=== PATIENT | male | born 1995 | race African-American/Black ===

== ENCOUNTER 2017-02-27 09:53 | Emergency (ER) | payer MEDICAID ==
[~2017-02-27] VITALS: Ht 180.3 cm; Wt 98.0 kg
[2017-02-27] MEDS ORDERED: PROSOL IH (10:04)
[2017-02-27] MEDS ORDERED: MAGNESIUM/ALUMINUM HYDROXIDE/SIMETHICONE 30ML UDC PO ONE (10:30)
[2017-02-27] MEDS ORDERED: ACETAMINOPHEN WITH CODEINE 300/30MG TABLET PO ONE (10:30)
[2017-02-27 10:39] LABS: BASOPHILS % 1.1 % (0.0-2.0); EOSINOPHILS % 1.6 % (0.0-5.0); HEMATOCRIT. 43.5 % (42.0-52.0); HEMOGLOBIN. 14.6 g/dL (14.0-18.0); LYMPHOCYTES % 21.3 % (20.0-50.0); MEAN CORPUSCULAR HEMOGLOBIN 25.7 pg (28.0-32.0); MEAN CORPUSCULAR VOLUME 76.5 fL (80.0-94.0); MEAN PLATELET VOLUME 9.1 fl (7.4-10.4); MONOCYTES % 11.8 % (2.0-8.0); NEUTROPHILS % 64.2 % (40.0-76.0); PLATELET 174 x1000/uL (130-400); RED BLOOD CELL COUNT 5.69 mill/uL (4.7-6.1); RED CELL DISTRIBUTION WIDTH 17.6 % (11.6-14.6)
[2017-02-27 10:44] LABS: INR 1.1
[2017-02-27 10:52] LABS: CARBON DIOXIDE 28 mEq/L (21-32); CHLORIDE 106 mEq/L (98-107)
[2017-02-27] MEDS ORDERED: KETOROLAC 60MG/2ML VIAL IM ONE (11:45)
[2017-02-27] MEDS ORDERED: KETOROLAC 30MG/ML VIAL IV ONE (12:00)
[2017-02-27 12:43] VITALS: BP 118/70
== END 2017-02-27 12:44 | disposition home or self-care (01) ==
LOC: ER 10:20
DX: R07.9 Chest pain, unspecified (principal); J45.909 Unspecified asthma, uncomplicated; F12.10 Cannabis abuse, uncomplicated
CPT/HCPCS: 36415; 71010; 80053; 83690; 85025; 85610; 96372; 99285; J1885; Z7610

== ENCOUNTER 2017-06-07 06:51 | Emergency (ER) | payer MEDICAID ==
[~2017-06-07] VITALS: Ht 172.7 cm; Wt 97.0 kg
[~2017-06-07 06:51] MED LIST: PROSOL IH
[2017-06-07 10:44] LABS: CLARITY URINE CLEAR (CLEAR); COLOR URINE YELLOW (YELLOW); KETONES URINE NEGATIVE (NEGATIVE); LEUKOCYTE ESTERASE URINE NEGATIVE (NEGATIVE); NITRITE URINE NEGATIVE (NEGATIVE); OCCULT BLOOD URINE NEGATIVE (NEGATIVE); PROTEIN URINE NEGATIVE (NEGATIVE); SPECIFIC GRAVITY URINE 1.028 (1.005-1.030)
[2017-06-07 11:00] VITALS: BP 127/79
[2017-06-07] MEDS ORDERED: LIDOCAINE HCL 1% 20ML VIAL (Pyxis) INJ MC ONE (11:00)
[2017-06-07] MEDS ORDERED: CEFTRIAXONE SODIUM 250 MG/VIAL IM ONE (11:00)
[2017-06-07] MEDS ORDERED: AZITHROMYCIN 500 MG TABLET PO ONE (11:00)
== END 2017-06-07 11:21 | disposition home or self-care (01) ==
LOC: ER 07:33
DX: J06.9 Acute upper respiratory infection, unspecified (principal); R36.9 Urethral discharge, unspecified
CPT/HCPCS: 81003; 96372; 99283; J0696

== ENCOUNTER 2018-07-26 03:09 | Emergency (ER) | payer MEDICAID ==
[~2018-07-26] VITALS: Ht 175.3 cm; Wt 95.0 kg
[2018-07-26] MEDS ORDERED: KETOROLAC 30MG/ML VIAL IV STA (06:25)
[2018-07-26 07:00] LABS: BASOPHILS % 1.2 % (0.0-2.0); EOSINOPHILS % 4.4 % (0.0-5.0); HEMATOCRIT. 41.7 % (42.0-52.0); HEMOGLOBIN. 13.9 g/dL (14.0-18.0); LYMPHOCYTES % 35.9 % (20.0-50.0); MEAN CORPUSCULAR VOLUME 77.8 fL (80.0-94.0); MEAN PLATELET VOLUME 8.9 fl (7.4-10.4); MONOCYTES % 10.9 % (2.0-8.0); NEUTROPHILS % 47.6 % (40.0-76.0); PLATELET 171 x1000/uL (130-400); RED BLOOD CELL COUNT 5.36 mill/uL (4.7-6.1); RED CELL DISTRIBUTION WIDTH 18.3 % (11.6-14.6)
[2018-07-26 07:01] LABS: CLARITY URINE CLEAR (CLEAR); COLOR URINE YELLOW (YELLOW); KETONES URINE TRACE (NEGATIVE); LEUKOCYTE ESTERASE URINE NEGATIVE (NEGATIVE); NITRITE URINE NEGATIVE (NEGATIVE); OCCULT BLOOD URINE NEGATIVE (NEGATIVE); PROTEIN URINE NEGATIVE (NEGATIVE); SPECIFIC GRAVITY URINE 1.036 (1.005-1.030)
[2018-07-26 07:06] LABS: CHLORIDE 110 mEq/L (98-107)
[2018-07-26 07:08] LABS: INR 1.1; PROTHROMBIN TIME 10.8 sec (9.1-11.1)
[2018-07-26] MEDS ORDERED: MORPHINE SULFATE 4 MG/ML CPJ (NOT FOR IM USE) IV ONE (07:45)
[2018-07-26 09:30] VITALS: BP 112/63
== END 2018-07-26 10:05 | disposition home or self-care (01) ==
LOC: ER 03:09
DX: R10.31 Right lower quadrant pain (principal); J45.909 Unspecified asthma, uncomplicated
CPT/HCPCS: 36415; 74176; 80053; 81003; 83690; 85025; 85610; 96374; 96375; 99284; J1885; J2270; Z7610

== ENCOUNTER 2018-09-18 16:45 | Emergency (ER) | payer MEDICAID ==
[~2018-09-18] VITALS: Ht 180.3 cm; Wt 114.0 kg
[2018-09-18] MEDS ORDERED: BACITRACIN ZINC OINT UDPKT TOP ONE (17:30)
[2018-09-18] MEDS ORDERED: LIDOCAINE HCL/PF 1% 10 MG/ML 5ML VIAL IJ ONE (17:30)
[2018-09-18] MEDS ORDERED: TETANUS, DIPHTHERIA, PERTUSSIS VAC/PF 0.5ML (>7YR OLD) IM ONE (17:30)
[2018-09-18] MEDS ORDERED: IBUPROFEN 600MG TABLET PO ONE (17:30)
[2018-09-18 19:02] VITALS: BP 124/74
== END 2018-09-18 19:05 | disposition home or self-care (01) ==
LOC: ER 16:45
DX: S61.210A Laceration without foreign body of right index finger without damage to nail, initial encounter (principal); J45.909 Unspecified asthma, uncomplicated; W45.8XXA Other foreign body or object entering through skin, initial encounter; Y93.89 Activity, other specified; Y92.89 Other specified places as the place of occurrence of the external cause; Y99.8 Other external cause status
CPT/HCPCS: 12002; 90471; 90715; 99283; J3490

== ENCOUNTER 2019-02-06 20:43 | Emergency (ER) | payer MEDICAID ==
[~2019-02-06] VITALS: Ht 177.8 cm; Wt 95.0 kg
[2019-02-06 21:29] VITALS: BP 125/71
== END 2019-02-07 00:27 | disposition home or self-care (01) ==
LOC: ER 20:43
DX: L03.113 Cellulitis of right upper limb (principal)
CPT/HCPCS: 73130; 99283

== ENCOUNTER 2020-12-14 12:48 | Emergency (ER) | payer MEDICAID ==
[~2020-12-14] VITALS: Ht 177.8 cm; Wt 100.0 kg
[2020-12-14 12:51] VITALS: BP 128/82
== END 2020-12-14 16:32 | disposition left against medical advice (07) ==
LOC: ER 12:48
DX: Z53.21 Procedure and treatment not carried out due to patient leaving prior to being seen by health care provider (principal)

== ENCOUNTER 2021-05-12 19:07 | Emergency (ER) | payer MEDICAID ==
[~2021-05-12] VITALS: Ht 175.3 cm; Wt 106.8 kg
[2021-05-12] MEDS ORDERED: IBUPROFEN 400MG TABLET PO ONE (20:15)
[2021-05-12 20:49] VITALS: BP 135/75
[2021-05-12] MEDS ORDERED: IBUP-2028 MT (22:05)
== END 2021-05-12 22:30 | disposition home or self-care (01) ==
LOC: ER 19:07
DX: B34.9 Viral infection, unspecified (principal); Z20.822 Contact with and (suspected) exposure to COVID-19; J45.909 Unspecified asthma, uncomplicated
CPT/HCPCS: 87070; 87077; 87426; 87430; 99283

== ENCOUNTER 2021-10-12 23:38 | Emergency (ER) | payer MEDICAID, OTHER ==
[~2021-10-12] VITALS: Ht 177.8 cm; Wt 107.0 kg
[~2021-10-12 23:38] MED LIST changes: +IBUP-2028 MT
[2021-10-13 00:10] VITALS: BP 124/73
[2021-10-13 01:15] LABS: CLARITY URINE CLEAR (CLEAR); COLOR URINE YELLOW (YELLOW); KETONES URINE TRACE (NEGATIVE); LEUKOCYTE ESTERASE URINE NEGATIVE (NEGATIVE); NITRITE URINE NEGATIVE (NEGATIVE); OCCULT BLOOD URINE NEGATIVE (NEGATIVE); PH URINE 5.5 (4.5-8.0); PROTEIN URINE NEGATIVE (NEGATIVE); SPECIFIC GRAVITY URINE 1.038 (1.005-1.030)
[2021-10-13] MEDS ORDERED: FLUC150T46 PO (01:23)
[2021-10-13] MEDS ORDERED: DOXY-326 PO (01:23)
[2021-10-13] MEDS ORDERED: CLOT15CR27 TP (01:23)
== END 2021-10-13 01:35 | disposition home or self-care (01) ==
LOC: ER 23:38
DX: B35.6 Tinea cruris (principal); N48.1 Balanitis; J45.909 Unspecified asthma, uncomplicated
CPT/HCPCS: 81003; 82962; 99283

== ENCOUNTER 2022-03-28 17:27 | Emergency (ER) | payer OTHER ==
[~2022-03-28] VITALS: Ht 175.3 cm; Wt 105.0 kg
[~2022-03-28 17:27] MED LIST changes: +CLOT15CR27 TP; +DOXY-326 PO; +FLUC150T46 PO
[2022-03-28 17:48] VITALS: BP 138/81
== END 2022-03-28 18:58 | disposition left against medical advice (07) ==
LOC: ER 17:27
DX: Z53.21 Procedure and treatment not carried out due to patient leaving prior to being seen by health care provider (principal)

== ENCOUNTER 2023-04-02 19:05 | Emergency (ER) | payer OTHER ==
[~2023-04-02] VITALS: Ht 177.8 cm; Wt 102.0 kg
[~2023-04-02 19:05] MED LIST changes: +ALBU5SOL18 IH; -DOXY-326 PO; +DOXY-456 PO; -PROSOL IH
[2023-04-02 19:30] VITALS: BP 131/83; PULSE 105; RESP 18; TEMP 98; O2SAT 98
[2023-04-02 20:38] LABS: DIFFERENTIAL COMMENT 1; HEMATOCRIT. 41.9 % (42.0-52.0); HEMOGLOBIN. 13.9 g/dL (14.0-18.0); MEAN CORPUSCULAR HEMOGLOBIN 25.6 pg (28.0-32.0); MEAN CORPUSCULAR HGB CONC 33.3 g/dL (31.0-37.0); MEAN PLATELET VOLUME 9.1 fl (7.4-10.4); PLATELET 206 x1000/uL (130-400); RED BLOOD CELL COUNT 5.43 mill/uL (4.7-6.1); RED CELL DISTRIBUTION WIDTH 17.8 % (11.6-14.6); WHITE BLOOD COUNT 4.6 x1000/uL (4.5-11.0)
[2023-04-02 20:47] LABS: PARTIAL THROMBOPLASTIN TIME 32.5 sec (23.4-31.0); PROTHROMBIN TIME 10.8 sec (9.6-11.0)
[2023-04-02 20:52] LABS: ALANINE AMINOTRANSFERASE 30 IU/L (10-49); ALBUMIN 4.6 g/dL (3.2-4.8); ASPARTATE AMINOTRANSFERASE 29 IU/L (<34); BILIRUBIN TOTAL 0.4 mg/dL (0.1-1.0); CALCIUM 9.4 mg/dL (8.7-10.4); CARBON DIOXIDE 28 mEq/L (21-32); CHLORIDE 107 mEq/L (98-107); GLUCOSE 84 mg/dL (70-105); POTASSIUM 4.1 mEq/L (3.5-5.1); PROTEIN TOTAL 6.7 g/dL (6.0-8.3); SODIUM 143 mEq/L (136-145); UREA NITROGEN BLOOD 8 mg/dL (9-23)
[2023-04-02 23:26] LABS: PLATELET ESTIMATE NORMAL
[2023-04-02 23:27] LABS: ANISOCYTOSIS 1+; MICROCYTOSIS 1+
[2023-04-02] MEDS ORDERED: HYDR30CR80 TP (23:52)
[2023-04-02] MEDS ORDERED: DOXY100C5 MT (23:52)
[2023-04-03] MEDS ORDERED: CEFTRIAXONE SODIUM 500 MG/VIAL IM ONE
[2023-04-03 02:12] LABS: CLARITY URINE CLEAR (CLEAR); COLOR URINE YELLOW (YELLOW); GLUCOSE URINE NEGATIVE (NEGATIVE); KETONES URINE TRACE (NEGATIVE); NITRITE URINE NEGATIVE (NEGATIVE); OCCULT BLOOD URINE NEGATIVE (NEGATIVE); PH URINE 5.5 (4.5-8.0); PROTEIN URINE NEGATIVE (NEGATIVE); SPECIFIC GRAVITY URINE 1.033 (1.005-1.030)
[2023-04-03 02:13] LABS: LEUKOCYTE ESTERASE URINE NEGATIVE (NEGATIVE)
[2023-04-06 13:07] LABS: CHLAMYDIA TRACHOMATIS NAA Negative (Negative); NEISSERIA GONORRHOEAE NAA Negative (Negative)
== END 2023-04-03 02:46 | disposition home or self-care (01) ==
LOC: ER 19:05
DX: R30.0 Dysuria (principal); A64 Unspecified sexually transmitted disease; K64.9 Unspecified hemorrhoids; J45.909 Unspecified asthma, uncomplicated
CPT/HCPCS: 99285; 71045; 87491; 87591; 80053; 81003; 85025; 85610; 85730; 86850; 86900; 86901; 36415; 93005; 96372; J0696